=== PATIENT | male | born 1985 | race Caucasian/White ===

== ENCOUNTER 2017-08-08 10:23 | Inpatient (IN) | payer MEDICAID ==
[~2017-08-08] VITALS: Ht 190.5 cm; Wt 81.8 kg
[2017-08-08] MEDS ORDERED: MAGNESIUM SULFATE 2 GM, MVI, ADULT NO.1 WITH VIT K 10 ML, THIAMINE HCL 100 MG, FOLIC AC... IV ONE ×5 (11:00)
[2017-08-08] MEDS ORDERED: SODIUM CHLORIDE 0.9% 1,000 ML IV ONE ×3 (11:00→17:45)
[2017-08-08] MEDS ORDERED: DIAZEPAM 5 MG/ML 2 ML SYRINGE IVP ONE ×2 (11:00→13:45)
[2017-08-08 11:28] LABS: BASOPHILS % (AUTO) 1.3 % (0.0-2.0); EOSINOPHILS % (AUTO) 0.7 % (1.0-6.0); HEMATOCRIT 39.2 % (41-53); HEMOGLOBIN 13.5 g/dL (13.5-17.5); LYMPHOCYTES # (AUTO) 1.9 K/uL (1.0-4.8); LYMPHOCYTES % (AUTO) 12.3 % (22.0-44.0); MEAN CORPUSCULAR HEMOGLOBIN 31.3 pg (26.0-34.0); MEAN CORPUSCULAR HGB CONC 34.4 G/dL (31.0-37.0); MEAN CORPUSCULAR VOLUME 91 fL (80-100); MONOCYTES # (AUTO) 2.3 K/uL (0.1-1.0); MONOCYTES % (AUTO) 14.8 % (2.0-9.0); NEUTROPHILS # (AUTO) 11.2 K/uL (1.8-7.7); NEUTROPHILS % (AUTO) 70.9 % (40.0-70.0); PLATELET COUNT (AUTO) 414 K/uL (150-450); RED BLOOD CELL COUNT(AUTO) 4.31 MIL/uL (4.50-5.90); RED CELL DISTRIBUTION WIDTH 13.5 % (11.5-14.5)
[2017-08-08 11:55] LABS: ANION GAP 14 mmol/L (8-16); CALCIUM, TOTAL 9.7 mg/dL (8.8-10.5); CARBON DIOXIDE 25 mmol/L (22-29); CHLORIDE 101 mmol/L (98-107); CREATININE 1.57 mg/dL (0.60-1.30); GLOMERULAR FILTR. RATE CALC 52 mL/min (>60); GLUCOSE,RANDOM 56 mg/dL (70-110); POTASSIUM 3.6 mmol/L (3.5-5.1); SODIUM SERUM 140 mmol/L (136-145); UREA NITROGEN, BLOOD 18 mg/dL (7-18)
[2017-08-08 12:01] LABS: ALANINE AMINOTRANSFERASE 180 U/L (12-78); ALBUMIN 4.9 g/dL (3.4-5.0); ALKALINE PHOSPHATASE 53 U/L (46-116); ASPARTATE AMINOTRANSFERASE 74 U/L (15-37); BILIRUBIN,TOTAL 0.5 mg/dL (0.1-1.0); TOTAL PROTEIN, SERUM 8.2 g/dL (6.4-8.2)
[2017-08-08] MEDS ORDERED: METO25 PO (13:56)
[2017-08-08] MEDS ORDERED: ONDANSETRON HCL 4 MG/2 ML VIAL IVP PRN (14:00)
[2017-08-08] MEDS ORDERED: 0.9% SODIUM CHLORIDE 10 ML SYRINGE IVP PRN (14:00)
[2017-08-08] MEDS ORDERED: ACETAMINOPHEN 325 MG TABLET PO PRN ×2 (14:00→21:15)
[2017-08-08] MEDS ORDERED: ChlordiazePOXIDE HCL 25 MG CAPSULE PO ONE (14:00)
[2017-08-08 15:31] VITALS: BP 107/67
[2017-08-08] MEDS ORDERED: MAGNESIUM SULFATE 2 GM in DEXTROSE 5%-WATER 50 ML IV PRN (17:45)
[2017-08-08] MEDS ORDERED: MAGNESIUM SULFATE 4 GM/WATER 100 ML IV PRN (17:45)
[2017-08-08] MEDS ORDERED: POTASSIUM CHL 10 MEQ/WATER 50 ML IV PRN (17:45)
[2017-08-08] MEDS ORDERED: POTASSIUM CHLORIDE 20 MEQ ER TABLET PO PRN (17:45)
[2017-08-08] MEDS ORDERED: MAGNESIUM OXIDE 400 MG TABLET PO PRN (17:45)
[2017-08-08 17:53] LABS: GLUCOMETER DEV NAME(LOC) 6N 2D; GLUCOSE,POINT OF CARE 58 MG/DL (70-110)
[2017-08-08 17:53] LABS: GLUCOMETER DEV NAME(LOC) 6N 2D; GLUCOSE,POINT OF CARE 93 MG/DL (70-110)
[2017-08-08] MEDS: LORazepam 2 MG/ML VIAL IVP PRN (18:19)
[2017-08-08] MEDS ORDERED: LORazepam 2 MG/ML VIAL IVP SCH (20:00)
[2017-08-08] MEDS ORDERED: MAGNESIUM HYDROXIDE SUSPENSION 30 ML UDCUP PO PRN (21:15)
[2017-08-08] MEDS: ChlordiazePOXIDE HCL 25 MG CAPSULE PO SCH (23:35)
[2017-08-09 00:18] VITALS: BP 116/68
[2017-08-09] MEDS: LORazepam 2 MG/ML VIAL IVP PRN ×2 (00:23→11:48)
[2017-08-09 01:26] LABS: APPEARANCE,URINE CLEAR (CLEAR); BILIRUBIN,URINE NEGATIVE (NEGATIVE); GLUCOSE, URINE (UA) NEGATIVE (NEGATIVE); KETONES,URINE NEGATIVE (NEGATIVE); LEUKOCYTE ESTERASE ,URINE SMALL (NEGATIVE); NITRATE,URINE NEGATIVE (NEGATIVE); OCCULT BLOOD,URINE NEGATIVE (NEGATIVE); PH,URINE 5.5 (5.0-8.0); PROTEIN,URINE NEGATIVE (NEGATIVE); UROBILINOGEN,URINE 0.2 mg/dL (<=1.0)
[2017-08-09 01:31] LABS: AMPHET/METH SCREEN,URINE NEGATIVE (NEGATIVE); BARBITURATE SCREEN, URINE NEGATIVE (NEGATIVE); BENZODIAZEPINES SCREEN,URINE POSITIVE (NEGATIVE); CANNABINOID SCREEN,URINE NEGATIVE (NEGATIVE); COCAINE SCREEN,URINE NEGATIVE (NEGATIVE); METHADONE SCREEN, URINE NEGATIVE (NEGATIVE); OPIATE SCREEN,URINE NEGATIVE (NEGATIVE)
[2017-08-09 01:32] LABS: PHENCYCLIDINE SCREEN,URINE NEGATIVE (NEGATIVE)
[2017-08-09 01:37] LABS: BACTERIA,URINE Rare /HPF (None Seen); RBC,URINE None Seen /HPF (0-2); SQUAMOUS EPITHELIAL CELL,UR Rare /LPF (None Seen)
[2017-08-09 05:27] VITALS: BP 128/79
[2017-08-09] MEDS: ChlordiazePOXIDE HCL 25 MG CAPSULE PO SCH ×3 (09:17→23:54)
[2017-08-09] MEDS: MULTIVITAMINS, THERAPEUTIC TABLET PO SCH (09:17)
[2017-08-09] MEDS: PANTOPRAZOLE SODIUM 40 MG/VIAL IVP SCH (09:17)
[2017-08-09 10:18] VITALS: BP 113/61
[2017-08-09 10:40] LABS: EOSINOPHILS % (AUTO) 8.5 % (1.0-6.0); HEMATOCRIT 37.7 % (41-53); HEMOGLOBIN 12.7 g/dL (13.5-17.5); LYMPHOCYTES # (AUTO) 1.5 K/uL (1.0-4.8); LYMPHOCYTES % (AUTO) 15.5 % (22.0-44.0); MEAN CORPUSCULAR HEMOGLOBIN 30.8 pg (26.0-34.0); MEAN CORPUSCULAR HGB CONC 33.6 G/dL (31.0-37.0); MEAN CORPUSCULAR VOLUME 92 fL (80-100); MONOCYTES % (AUTO) 10.2 % (2.0-9.0); NEUTROPHILS # (AUTO) 6.2 K/uL (1.8-7.7); NEUTROPHILS % (AUTO) 64.8 % (40.0-70.0); PLATELET COUNT (AUTO) 391 K/uL (150-450); RED BLOOD CELL COUNT(AUTO) 4.11 MIL/uL (4.50-5.90); RED CELL DISTRIBUTION WIDTH 13.5 % (11.5-14.5)
[2017-08-09 11:04] LABS: ANION GAP 5 mmol/L (8-16); CALCIUM, TOTAL 8.5 mg/dL (8.8-10.5); CARBON DIOXIDE 29 mmol/L (22-29); CHLORIDE 107 mmol/L (98-107); CREATININE 1.03 mg/dL (0.60-1.30); GLOMERULAR FILTR. RATE CALC > 60 mL/min (>60); GLUCOSE,RANDOM 107 mg/dL (70-110); POTASSIUM 4.1 mmol/L (3.5-5.1); SODIUM SERUM 141 mmol/L (136-145); UREA NITROGEN, BLOOD 10 mg/dL (7-18)
[2017-08-09 11:09] LABS: ALANINE AMINOTRANSFERASE 125 U/L (12-78); ALBUMIN 3.8 g/dL (3.4-5.0); ALKALINE PHOSPHATASE 44 U/L (46-116); ASPARTATE AMINOTRANSFERASE 55 U/L (15-37); BILIRUBIN,TOTAL 0.5 mg/dL (0.1-1.0); TOTAL PROTEIN, SERUM 6.7 g/dL (6.4-8.2)
[2017-08-09 16:01] VITALS: BP 123/76
[2017-08-09 20:00] VITALS: BP 123/75
[2017-08-09 23:44] VITALS: BP 124/75
[2017-08-10 04:17] VITALS: BP 118/75
[2017-08-10 07:05] VITALS: BP 118/67
[2017-08-10] MEDS: MULTIVITAMINS, THERAPEUTIC TABLET PO SCH (08:47)
[2017-08-10] MEDS: ChlordiazePOXIDE HCL 25 MG CAPSULE PO SCH ×3 (08:47→23:28)
[2017-08-10] MEDS: PANTOPRAZOLE SODIUM 40 MG/VIAL IVP SCH (08:47)
[2017-08-10 11:09] VITALS: BP 109/69
[2017-08-10] MEDS ORDERED: FOLIC ACID 1 MG TABLET PO ONE (15:45)
[2017-08-10] MEDS ORDERED: THIAMINE HCL 100 MG TABLET PO ONE (15:45)
[2017-08-10 16:05] VITALS: BP 126/93
[2017-08-10 20:05] VITALS: BP 125/75
[2017-08-10] MEDS: METOPROLOL TARTRATE 25 MG TABLET PO SCH (20:12)
[2017-08-11 00:05] VITALS: BP 124/71
[2017-08-11 04:18] VITALS: BP 130/67
[2017-08-11] MEDS: ChlordiazePOXIDE HCL 25 MG CAPSULE PO SCH ×2 (06:10→12:29)
[2017-08-11 06:46] LABS: BASOPHILS % (AUTO) 2.7 % (0.0-2.0); EOSINOPHILS % (AUTO) 11.9 % (1.0-6.0); HEMATOCRIT 40.6 % (41-53); HEMOGLOBIN 13.9 g/dL (13.5-17.5); LYMPHOCYTES # (AUTO) 2.3 K/uL (1.0-4.8); LYMPHOCYTES % (AUTO) 20.5 % (22.0-44.0); MEAN CORPUSCULAR HEMOGLOBIN 31.3 pg (26.0-34.0); MEAN CORPUSCULAR HGB CONC 34.3 G/dL (31.0-37.0); MEAN CORPUSCULAR VOLUME 91 fL (80-100); MONOCYTES # (AUTO) 1.2 K/uL (0.1-1.0); MONOCYTES % (AUTO) 10.3 % (2.0-9.0); NEUTROPHILS # (AUTO) 6.2 K/uL (1.8-7.7); NEUTROPHILS % (AUTO) 54.6 % (40.0-70.0); PLATELET COUNT (AUTO) 406 K/uL (150-450); RED BLOOD CELL COUNT(AUTO) 4.46 MIL/uL (4.50-5.90); RED CELL DISTRIBUTION WIDTH 13.4 % (11.5-14.5)
[2017-08-11 07:30] LABS: ALKALINE PHOSPHATASE 42 U/L (46-116); ANION GAP 8 mmol/L (8-16); BILIRUBIN,TOTAL 0.2 mg/dL (0.1-1.0); CALCIUM, TOTAL 9.1 mg/dL (8.8-10.5); CARBON DIOXIDE 30 mmol/L (22-29); CHLORIDE 102 mmol/L (98-107); CREATININE 0.99 mg/dL (0.60-1.30); GLOMERULAR FILTR. RATE CALC > 60 mL/min (>60); GLUCOSE,RANDOM 83 mg/dL (70-110); POTASSIUM 4.4 mmol/L (3.5-5.1); SODIUM SERUM 140 mmol/L (136-145); UREA NITROGEN, BLOOD 8 mg/dL (7-18)
[2017-08-11 07:31] LABS: ALANINE AMINOTRANSFERASE 102 U/L (12-78); ALBUMIN 4.1 g/dL (3.4-5.0); ASPARTATE AMINOTRANSFERASE 33 U/L (15-37); TOTAL PROTEIN, SERUM 7.4 g/dL (6.4-8.2)
[2017-08-11] MEDS: METOPROLOL TARTRATE 25 MG TABLET PO SCH (08:13)
[2017-08-11] MEDS: MULTIVITAMINS, THERAPEUTIC TABLET PO SCH (08:13)
[2017-08-11] MEDS: PANTOPRAZOLE SODIUM 40 MG/VIAL IVP SCH (08:14)
[2017-08-11 08:15] VITALS: BP 153/57
[2017-08-11] MEDS ORDERED: FOLIC ACID 1 MG TABLET PO SCH (09:00)
[2017-08-11] MEDS ORDERED: NALTREXONE HCL 50 MG TABLET PO SCH (09:00)
[2017-08-11] MEDS ORDERED: THIAMINE HCL 100 MG TABLET PO SCH (09:00)
[2017-08-11] MEDS ORDERED: FOLI1 PO (10:13)
[2017-08-11] MEDS ORDERED: MULT-248 PO (10:14)
[2017-08-11] MEDS ORDERED: THIA100 PO (10:15)
[2017-08-11] MEDS ORDERED: LIB25 PO ×6 (10:22→10:29)
[2017-08-11] MEDS ORDERED: NALT50TA6 PO (10:31)
[2017-08-11 12:31] VITALS: BP 111/55
== END 2017-08-11 14:00 | disposition home or self-care (01) | DRG 469 ==
LOC: EMS 10:28 → 6N 14:30
PROVIDERS: ADMIT Internal Medicine; ATTEND Internal Medicine
DX: N17.9 Acute kidney failure, unspecified (principal); G92 Toxic encephalopathy; F10.231 Alcohol dependence with withdrawal delirium; R65.10 Systemic inflammatory response syndrome (SIRS) of non-infectious origin without acute organ dysfunction; R56.9 Unspecified convulsions; F29 Unspecified psychosis not due to a substance or known physiological condition; I10 Essential (primary) hypertension; F41.9 Anxiety disorder, unspecified; Z81.1 Family history of alcohol abuse and dependence
CPT/HCPCS: 80307; 83735; 87081; 96365; 96375; 99285; C9113; G0480; J2060; J3411; J3475; J3490; J7030